=== PATIENT | male | born 1995 | race Two or more races ===

== ENCOUNTER 2018-10-20 00:39 | Emergency (ER) | payer OTHER ==
[~2018-10-20] VITALS: Ht 177.8 cm; Wt 88.5 kg
[2018-10-20 00:55] VITALS: BP 134/75
== END 2018-10-20 03:13 | disposition home or self-care (01) ==
LOC: ER 00:47
DX: S63.501A Unspecified sprain of right wrist, initial encounter (principal); W01.0XXA Fall on same level from slipping, tripping and stumbling without subsequent striking against object, initial encounter; Y93.89 Activity, other specified; Y92.89 Other specified places as the place of occurrence of the external cause; Y99.0 Civilian activity done for income or pay
CPT/HCPCS: 73110